=== PATIENT | female | born 1970 | race African-American/Black ===

== ENCOUNTER → 2018-01-03 | Outpatient (CLI) | payer OTHER ==
[~2018-01-03] MED LIST: DITROPAN X15 MG/BOTT PO; FIORICET 50-301 EACH PO; GLIPIZIDE10 MG; GLIPIZIDE5 MG PO; HYZAAR 100-121 UDTAB; HYZAAR 100-251 UDTAB; HYZAAR 100-251 UDTAB PO; METFORMIN HCL500 MG; METFORMIN HCL500 MG PO; METOPROLOL TART50 MG; METOPROLOL TART50 MG PO; NEURONTIN300 MG; OXYBUTYNIN CHLOR5 MG; OXYBUTYNIN CHLOR5 MG PO; PRILOSEC OTC20 MG; TOPROL XL50 M1; TOPROL XL50 M1 PO
== END | disposition home or self-care (01) ==
LOC: PPHC 11:39
DX: M54.89 Other dorsalgia (principal)

== ENCOUNTER 2018-08-31 09:32 | Outpatient (CLI) | payer OTHER | END 2018-08-31 09:36 | disposition home or self-care (01) | LOC: TOM 09:32 | DX: R51 Headache (principal) ==

== ENCOUNTER → 2019-05-14 | Outpatient (CLI) | payer OTHER | END | disposition home or self-care (01) | LOC: RAD 10:31 | DX: M54.89 Other dorsalgia (principal) ==

== ENCOUNTER 2019-05-21 08:12 | Outpatient (CLI) | payer OTHER | END 2019-05-21 08:27 | disposition home or self-care (01) | LOC: NUCLEAR 08:12 | DX: I10 Essential (primary) hypertension (principal) ==

== ENCOUNTER → 2020-07-07 13:00 | Outpatient (CLI) | payer OTHER | END | disposition home or self-care (01) | LOC: PPH VACUNA 13:00 | DX: Z23 Encounter for immunization (principal) ==

== ENCOUNTER 2020-09-01 14:44 | Outpatient (CLI) | payer OTHER | END 2020-09-01 14:47 | disposition HB | LOC: MAMO-SONO 14:44 | PROVIDERS: ATTEND Pediatrics Neonatal-Perinatal Medicine | DX: Z12.31 Encounter for screening mammogram for malignant neoplasm of breast (principal); R92.0 Mammographic microcalcification found on diagnostic imaging of breast ==

== ENCOUNTER 2020-09-07 07:25 | Outpatient (CLI) | payer OTHER | END 2020-09-07 07:58 | disposition home or self-care (01) | LOC: LAB 07:25 | DX: D64.89 Other specified anemias (principal); R10.84 Generalized abdominal pain; E78.49 Other hyperlipidemia; E11.9 Type 2 diabetes mellitus without complications ==

== ENCOUNTER 2020-09-28 11:10 | Outpatient (CLI) | payer OTHER | END 2020-09-28 11:11 | disposition home or self-care (01) | LOC: PPH VACUNA 11:10 | DX: Z23 Encounter for immunization (principal) ==

== ENCOUNTER 2021-02-17 08:13 | Outpatient (CLI) | payer OTHER | END 2021-02-17 18:00 | disposition home or self-care (01) | LOC: LAB 08:13 | PROVIDERS: ATTEND Internal Medicine | DX: E11.65 Type 2 diabetes mellitus with hyperglycemia (principal); E03.8 Other specified hypothyroidism; I10 Essential (primary) hypertension; E78.49 Other hyperlipidemia ==

== ENCOUNTER → 2021-03-05 | Outpatient (CLI) | payer OTHER | END | disposition home or self-care (01) | LOC: SONOGRAMA 10:57 | PROVIDERS: ATTEND Pediatrics Neonatal-Perinatal Medicine | DX: N63.10 Unspecified lump in the right breast, unspecified quadrant (principal); N63.20 Unspecified lump in the left breast, unspecified quadrant; Z12.39 Encounter for other screening for malignant neoplasm of breast ==

== ENCOUNTER 2021-03-12 07:12 | Outpatient (CLI) | payer OTHER | END 2021-03-12 07:13 | disposition home or self-care (01) | LOC: LAB 07:12 | PROVIDERS: ATTEND Internal Medicine | DX: R10.9 Unspecified abdominal pain (principal); E78.5 Hyperlipidemia, unspecified ==

== ENCOUNTER 2021-10-25 15:25 | Outpatient (CLI) | payer OTHER | END 2021-10-25 15:28 | disposition home or self-care (01) | LOC: LAB 15:25 | PROVIDERS: ATTEND Pediatrics Neonatal-Perinatal Medicine | DX: R05.9 Cough, unspecified (principal); R50.9 Fever, unspecified; R06.02 Shortness of breath; Z03.818 Encounter for observation for suspected exposure to other biological agents ruled out ==